=== PATIENT | female | born 1955 | race Caucasian/White ===

== ENCOUNTER → 2018-08-03 | Outpatient (CLI) | payer BC ==
--- NOTE | 2018-08-03 10:24 | FL ---
EXAMINATION TYPE: FL barium swallow DATE OF EXAM: 08/03/2018 CLINICAL HISTORY: Chest pain from epigastric region for 3 to 4 months. TECHNIQUE: A double contrast esophagram is performed utilizing air and barium. A total of 28 second s of fluoroscopic time was utilized during procedure. 48 spot images are saved. COMPARISON: None FINDINGS: The esophagus shows satisfactory motility and emptying into the stomach. Patient had focal deep penetration on image 10 which clears during rapid drinking. No evidence of fixed hiatal hernia or stricture noted. No significant gastroesophageal reflux was seen during real time performance of t his study. IMPRESSION: No significant abnormality is seen to account for patient's symptoms of chest and epigas tric pain.
== END | disposition home or self-care (01) ==
LOC: RADUSWWP 09:32
PROVIDERS: ATTEND Surgery Plastic and Reconstructive Surgery
DX: R07.9 Chest pain, unspecified (principal); R10.13 Epigastric pain; Z88.1 Allergy status to other antibiotic agents; Z88.5 Allergy status to narcotic agent
CPT/HCPCS: 74220

== ENCOUNTER 2018-08-17 10:04 | Day surgery (SDC) | payer BC ==
[2018-08-16 08:29] VITALS: BMI 29.7
--- NOTE | 2018-08-16 23:01 | P.GSHP ---
History of Present Illness H&P Date: 08/17/18 CHIEF COMPLAINT: GERD HISTORY OF PRESENT ILLNESS: The patient is a 62-year-old female who presents reports gastroesophageal reflux disease. Upper endoscopy was offered for further evaluation and management. PAST MEDICAL HISTORY: Please see list. PAST SURGICAL HISTORY: Please see list. MEDICATIONS: Please see list. ALLERGIES: Please see list. SOCIAL HISTORY: No illicit drug use FAMILY HISTORY: No reports of Crohn disease or ulcerative colitis. REVIEW OF ORGAN SYSTEMS: CONSTITUTIONAL: No reports of fevers or chills. GI: Denies any blood in stools or constipation. PHYSICAL EXAM: VITAL SIGNS: Stable GENERAL: Well-developed and pleasant in no acute distress. HEENT: No scleral icterus. Extraocular movements grossly intact. Moist buccal mucosa. NECK: Supple without lymphadenopathy. CHEST: Unlabored respirations. Equal bilateral excursions. CARDIOVASCULAR: Regular rate and rhythm. Distal 2+ pulses. ABDOMEN: Soft, nondistended. MUSCULOSKELETAL: No clubbing, cyanosis, or edema. ASSESSMENT: 1. Gastroesophageal reflux disease PLAN: 1. Recommend proceeding with an upper endoscopy Past Medical History Past Medical History: GERD/Reflux, Hyperlipidemia, Hypertension, Thyroid Disorder History of Any Multi-Drug Resistant Organisms: None Reported Past Surgical History: Orthopedic Surgery Additional Past Surgical History / Comment(s): LT KNEE SCOPE. COLONOSCOPY Past Anesthesia/Blood Transfusion Reactions: Motion Sickness Smoking Status: Never smoker - Past Family History Mother Family Medical History: No Reported History Father History Unknown: Yes Medications and Allergies Home Medications Medication Instructions Recorded Confirmed Type Aspirin [Adult Low Dose Aspirin EC] 81 mg PO DAILY 08/16/18 08/16/18 History Atorvastatin [Lipitor] 10 mg PO DAILY 08/16/18 08/16/18 History Cholecalciferol (Vitamin D3) 2,000 unit PO HS 08/16/18 08/16/18 History [Vitamin D3] Famotidine 20 mg PO BID 08/16/18 08/16/18 History Levothyroxine Sodium 100 mcg PO DAILY 08/16/18 08/16/18 History Omeprazole 40 mg PO DAILY 08/16/18 08/16/18 History amLODIPine BESYLATE 5 mg PO DAILY 08/16/18 08/16/18 History Allergies Allergy/AdvReac Type Severity Reaction Status Date / Time acetaminophen [From [place]] Allergy Rash/Hives Verified 08/16/18 08:16 hydrocodone [From [place]] Allergy Rash/Hives Verified 08/16/18 08:16
[~2018-08-17 10:04] MED LIST: LACTATED RINGERS 1,000 ML IV SCH; LIDOCAINE 1% 20 ML VIAL (10MG/ML) FOR IV START INTRADERMA PRN
[2018-08-17] MEDS ORDERED: LIDOCAINE 1% 20 ML VIAL (10MG/ML) FOR IV START INTRADERMA ONE (10:25)
[2018-08-17] MEDS ORDERED: LACTATED RINGERS 1,000 ML IV ONE (10:25)
[2018-08-17 10:41] VITALS: RESP 16; TEMP 97.8
[2018-08-17] MEDS ORDERED: PROPOFOL 10 MG/ML 20 ML VIAL IV ONE (10:56)
--- NOTE | 2018-08-17 11:11 | P.PCN ---
Date of Procedure: 08/17/18 Description of Procedure: PREOPERATIVE DIAGNOSIS: Gastroesophageal reflux disease. POSTOPERATIVE DIAGNOSIS: Gastritis. Gastroesophageal reflux disease. Diaphragmatic hiatal hernia OPERATION: Esophagogastroduodenoscopy with biopsies along antrum. SURGEON: Zuly De La Fuente MD ANESTHESIA: MAC. INDICATIONS: The patient is a 62-year-old female who presents with a history of reflux disease. Benefits and risks of the procedure were described. Informed consent was obtained. DESCRIPTION: The patient was brought into the endoscopy suite and laid in the left lateral decubitus position. An Olympus gastroscope was passed along the posterior oropharynx down to the distal esophagus where the squamocolumnar junction was encountered at 35 cm from the incisors. The stomach was entered and no bile reflux was found. Additional findings are listed below. Biopsies with cold forceps were obtained of the antrum. The first through third portion of the duodenum was examined and unremarkable. Retroflexion of the scope confirmed Hill grade 4 lower esophageal valve. The squamocolumnar junction demonstrated LA grade B erosive esophagitis. The stomach was desufflated. The patient tolerated the procedure well. FINDINGS: Squamocolumnar junction 35 cm from the incisors. Diaphragmatic hiatus at 40 cm. Hiatal hernia, 5 cm Hill grade 4 lower esophageal valve. LA grade B erosive esophagitis. No active duodenitis. Chronic gastritis RECOMMENDATIONS: Upper endoscopy as needed. Plan - Discharge Summary Discharge Rx Participant: No New Discharge Prescriptions: No Action Atorvastatin [Lipitor] 10 mg PO DAILY amLODIPine BESYLATE 5 mg PO DAILY Famotidine 20 mg PO BID Omeprazole 40 mg PO DAILY Levothyroxine Sodium 100 mcg PO DAILY Cholecalciferol (Vitamin D3) [Vitamin D3] 2,000 unit PO HS Aspirin [Adult Low Dose Aspirin EC] 81 mg PO DAILY Discharge Medication List Aspirin [Adult Low Dose Aspirin EC] 81 mg PO DAILY 08/16/18 [History] Atorvastatin [Lipitor] 10 mg PO DAILY 08/16/18 [History] Cholecalciferol (Vitamin D3) [Vitamin D3] 2,000 unit PO HS 08/16/18 [History] Famotidine 20 mg PO BID 08/16/18 [History] Levothyroxine Sodium 100 mcg PO DAILY 08/16/18 [History] Omeprazole 40 mg PO DAILY 08/16/18 [History] amLODIPine BESYLATE 5 mg PO DAILY 08/16/18 [History] Follow up Appointment(s)/Referral(s): Zuly De La Fuente MD [STAFF PHYSICIAN] - 08/28/18 Patient Instructions/Handouts: Hiatal Hernia (DC), Gastroesophageal Reflux Disease (DC) Discharge Disposition: HOME SELF-CARE
[2018-08-17 11:37] VITALS: BP 123/78; PULSE 70
== END 2018-08-17 11:50 | disposition home or self-care (01) ==
LOC: ORWHC2ENDO 10:04
PROVIDERS: ATTEND Surgery Plastic and Reconstructive Surgery
DX: K29.50 Unspecified chronic gastritis without bleeding (principal); K44.9 Diaphragmatic hernia without obstruction or gangrene; K21.9 Gastro-esophageal reflux disease without esophagitis; I10 Essential (primary) hypertension; E78.5 Hyperlipidemia, unspecified; E07.9 Disorder of thyroid, unspecified; Z79.82 Long term (current) use of aspirin; Z79.890 Hormone replacement therapy; Z79.899 Other long term (current) drug therapy; Z88.5 Allergy status to narcotic agent
CPT/HCPCS: 88305; 43239; J2704

== ENCOUNTER → 2018-11-30 | Outpatient (CLI) | payer BC ==
[2018-11-30 14:32] LABS: HCT 42.1 % (34.0-46.0); HGB 14.3 gm/dL (11.4-16.0); MCH 31.3 pg (25.0-35.0); MCV 91.8 fL (80.0-100.0); Mean Platelet Volume 7.7; Platelet Count 296 k/uL (150-450); RBC 4.58 m/uL (3.80-5.40); RDW 13.2 % (11.5-15.5); WBC 9.1 k/uL (3.8-10.6)
== END | disposition home or self-care (01) ==
LOC: LABPAT 12:47
PROVIDERS: ATTEND Surgery Plastic and Reconstructive Surgery
DX: Z01.812 Encounter for preprocedural laboratory examination (principal)
CPT/HCPCS: 36415; 85027

== ENCOUNTER 2018-12-06 06:47 | Inpatient (IN) | payer BC ==
[2018-11-30 10:11] VITALS: BMI 29.7
[~2018-12-06 06:47] MED LIST changes: +CLINDAMYCIN 900 MG in DEXTROSE 5% IN WATER 50 ML IVPB ONE; +DEXAMETHASONE SOD PHOSPHATE 10 MG/ML 1 ML VIAL IV ONE; +HEPARIN SODIUM,PORCINE 5,000 UNIT/ML 1 ML VIAL SQ ONE; +LEVOFLOXACIN 500MG-D5W PMX 500 MG in DEXTROSE/WATER 1 100ML.BAG IVPB ONE; +ONDANSETRON 4 MG/2 ML VIAL IVP ONE; +SCOPOLAMINE 1.5MG/72HR PATCH TRANSDERM ONE; +fentaNYL (PF) 50 MCG/ML 2 ML AMP IV PRN
--- NOTE | 2018-12-06 07:44 | P.GSHP ---
History of Present Illness H&P Date: 12/06/18 CHIEF COMPLAINT: Paraesophageal hiatal hernia with gastroesophageal reflux disease. HISTORY OF PRESENT ILLNESS: The patient is a 63-year-old female who presents with paraesophageal hiatal hernia. She has completed an esophageal manometry including upper endoscopy workup. Now she presents for surgical intervention. PAST MEDICAL HISTORY: Please see list. PAST SURGICAL HISTORY: Please see list. MEDICATIONS: Please see list. ALLERGIES: Please see list. SOCIAL HISTORY: No illicit drug use FAMILY HISTORY: No reports of Crohn disease or ulcerative colitis. REVIEW OF ORGAN SYSTEMS: CONSTITUTIONAL: No reports of fevers or chills. GI: Denies any blood in stools or constipation. PHYSICAL EXAM: VITAL SIGNS: Stable GENERAL: Well-developed pleasant and in no acute distress. HEENT: No scleral icterus. Extraocular movements grossly intact. Moist buccal mucosa. NECK: Supple without lymphadenopathy. CHEST: Unlabored respirations. Equal bilateral excursions. CARDIOVASCULAR: Regular rate and rhythm. Distal 2+ pulses. ABDOMEN: Soft, nondistended. No peritoneal signs. MUSCULOSKELETAL: No clubbing, cyanosis, or edema. SKIN: Well-perfused. Good skin turgor. MANOMETRY: Shows no evidence of achalasia or scleroderma. ASSESSMENT: 1. Diaphragmatic paraesophageal hiatal hernia with severe gastroesophageal reflux disease. PLAN: 1. Recommend proceeding with a robotic paraesophageal hiatal hernia with possible mesh. 2. Benefits and risks of surgical intervention was discussed including possibility of open technique. 3. Inpatient hospitalization recommended of 2 nights 4. DVT prophylaxis. 5. Antibiotic prophylaxis. 6. She has also completed a very low caloric high-protein diet to address underlying hepatomegaly. Past Medical History Past Medical History: Hyperlipidemia, Hypertension, Osteoarthritis (OA), Thyroid Disorder Additional Past Medical History / Comment(s): hiatal hernia, bone spur rt hip History of Any Multi-Drug Resistant Organisms: None Reported Past Surgical History: Orthopedic Surgery Additional Past Surgical History / Comment(s): lt knee meniscus repair Past Anesthesia/Blood Transfusion Reactions: Family History of Problems w/ Anesthesia, Motion Sickness Additional Past Anesthesia/Blood Transfusion Reaction / Comment(s): mother ponv Smoking Status: Former smoker - Past Family History Mother Family Medical History: No Reported History Medications and Allergies Home Medications Medication Instructions Recorded Confirmed Type Atorvastatin [Lipitor] 10 mg PO DAILY 08/16/18 12/06/18 History Cholecalciferol (Vitamin D3) 2,000 unit PO HS 08/16/18 11/30/18 History [Vitamin D3] Levothyroxine Sodium 100 mcg PO DAILY 08/16/18 11/30/18 History amLODIPine BESYLATE 5 mg PO DAILY 08/16/18 11/30/18 History Allergies Allergy/AdvReac Type Severity Reaction Status Date / Time acetaminophen [From [place]] Allergy Rash/Hives Verified 11/30/18 09:55 bee venom protein (honey bee) Allergy Swelling Verified 11/30/18 09:57 cephalexin Allergy Itching,rash,hives,heat Verified 11/30/18 09:56 in face hydrocodone [From [place]] Allergy Rash/Hives Verified 11/30/18 09:55 Surgical - Exam Vital Signs Temp Pulse Resp BP Pulse Ox 98.0 F 80 18 131/75 98 12/06/18 07:12 12/06/18 07:12 12/06/18 07:12 12/06/18 07:12 12/06/18 07:12
[2018-12-06] MEDS ORDERED: MIDAZOLAM PF (FBP) 2 MG/2 ML VIAL IVP ONE (07:45)
[2018-12-06] MEDS ORDERED: fentaNYL (PF) 50 MCG/ML 2 ML AMP ONE (08:08)
[2018-12-06] MEDS ORDERED: MIDAZOLAM 2 MG/2 ML VIAL ONE (08:08)
[2018-12-06] MEDS ORDERED: LIDOCAINE 1% INJ 10MG/ML (20 ML MDV) ONE (08:08)
[2018-12-06] MEDS ORDERED: NEOSTIGMINE 1 MG/ML 10 ML VIAL ONE (08:08)
[2018-12-06] MEDS ORDERED: ROCURONIUM BROMIDE 10 MG/ML 10 ML VIAL IV ONE (08:08)
[2018-12-06] MEDS ORDERED: GLYCOPYRROLATE 0.2 MG/ML 2 ML VIAL ONE (08:08)
[2018-12-06] MEDS ORDERED: KETOROLAC 30 MG/ML 1 ML VIAL ONE (08:08)
[2018-12-06] MEDS ORDERED: PROPOFOL 10 MG/ML 20 ML VIAL IV ONE (08:08)
[2018-12-06] MEDS ORDERED: BUPIVACAINE (PF) 0.25% 30 ML VIAL SQ ONE (08:42)
[2018-12-06] MEDS ORDERED: NALOXONE 0.4 MG/ML 1 ML VIAL IV PRN ×2 (09:53→10:51)
[2018-12-06] MEDS ORDERED: diphenhydrAMINE 50 MG/ML 1 ML VIAL IVP PRN (09:53)
[2018-12-06] MEDS ORDERED: SCOPOLAMINE 1.5MG/72HR PATCH TRANSDERM SCH (10:00)
[2018-12-06] MEDS: HYDROmorphone 1 MG/ML 1 ML SYRINGE IVP ONE ×2 (10:05→10:30)
--- NOTE | 2018-12-06 10:13 | P.OP ---
Date of Procedure: 12/06/18 Description of Procedure: SURGEON: CELIA LUCIA MD PREOPERATIVE DIAGNOSES: 1. Symptomatic paraesophageal diaphragmatic hiatal hernia. 2. Gastroesophageal reflux disease. 3. Hypothyroidism 4. Hyperlipidemia 5. Hypertensive lower esophageal sphincter POSTOPERATIVE DIAGNOSES: 1. Symptomatic paraesophageal diaphragmatic hiatal hernia. 2. Gastroesophageal reflux disease. 3. Hypothyroidism 4. Hyperlipidemia 5. Hypertensive lower esophageal sphincter OPERATION: 1. Robotic-assisted da Nikkie Xi laparoscopic repair of incarcerated paraesophageal hiatal hernia, 5 x 3 cm, with Gaines Biopatch A 8 x 8 cm. 2. Intraoperative esophagogastroduodenoscopy 3. Insertion of 56-Somali bougie for dilation of hypertensive lower esophageal sphincter ANESTHESIA: General with local anesthetic. ESTIMATED BLOOD LOSS: 5 mL SPECIMENS REMOVED: None COMPLICATIONS: None. Condition: stable Disposition: floor FINDINGS: 1. Midline incarcerated paraesophageal hiatal hernia 5 x 3 cm 2. Intraoperative upper endoscopy confirms complete closure of hiatal hernia from Hill grade 4 to Hill grade 1 INDICATIONS: The patient is a 63-year-old female who presents with regurgitation, gastroesophageal reflux disease poorly controlled despite medications, and a symptomatic diaphragmatic hiatal hernia with Oconnor's esophagus. Preoperative workup including upper endoscopy demonstrated a Hill grade 4 lower esophageal valve. She completed an esophageal manometry. Given the severity of symptoms, she had elected for surgical intervention. Benefits and risks including bleeding, infection, recurrence, dysphagia, injury to the lung, need for further surgery was described at length. Informed consent was obtained. DESCRIPTION: The patient was brought into the operating room and placed in supine position. Preoperatively she had received heparin subcutaneously for DVT prophylaxis. After general induction, the abdomen was prepped and draped in standard sterile fashion. The patient had previously voided prior to coming to the operating room. Ioban draping was placed along the abdomen. A timeout protocol was confirmed with the surgical team, for which the patient's name, procedure to be performed including DVT prophylaxis with bilateral SCDs, and preoperative antibiotics were also confirmed. A robotic da Nikkie Xi system was prepped and primed. At 12 cm from the xiphoid to just below the umbilicus, proposed port sites were marked with indelible marker along the left axillary line, left mid-clavicular line with each ports were marked 10 cm from each other. A 5 mm 0 degrees laparoscopic trocar entry was performed along the left upper quadrant. The abdomen was insufflated to 15 mmHg pressure was tolerated well. Diagnostic laparoscopy demonstrated no injury to bowel, viscera, or mesentery. No injury had occurred to the small bowel or viscera. The liver was pristine and thin consistent with low-carb high-protein diet. Next, one 8 mm robotic port was placed along the right upper abdomen. An 8-mm port was were placed along the left lateral abdominal wall. The camera 8-mm port was maintained along the epigastrium via the hernia defect. Another 12 mm port was placed along the left upper abdominal wall after exchanging the 5 mm port. Please note that the ports were placed at least 20 cm away from the target anatomy. Care was taken to check that each robotic arm were safely away from collision with the bed or the patient. At the epigastrium, a medium sized [place] liver retractor was placed under direct visualization with the [place] Valve Mechanic placed under the right shoulder of the patient. All robotic arms were used. The patient was repositioned in reverse Trendelenburg position at 20-degrees after lowering the bed. The robot was docked above the right side of the patient. Using a grasper for arm 3, a grasper for arm 1, including vessel sealer for arm 2, the robotic system was docked and primed as described. Instruments were interchanged by the night assistant. I had sat at the console. The gastrohepatic ligament was cleaved using a vessel sealer. Next, the phrenoesophageal ligament was mobilized and the distal esophagus was mobilized circumferentially. The left and right crura was identified. Circumferentially, the hernia sac was excised and brought into the peritoneal cavity. Moderate dissection into the mediastinum was performed to release the esophagus into the abdominal cavity. The paraesophageal hiatal hernia sac was also incised and divided from the esophagus. The measured defect was consistent with 5 cm axial length and 3 cm in width. After dissection, the distal esophagus of 3 cm was brought into the abdominal cavity. Once the hiatus and crura was dissected, 2-0 VLOC suture was placed to reapproximate the diaphragmatic hiatus posteriorly. To buttress the repair, a Gaines Biopatch A was prepared along the back table and cut in half of a wilson-hole fashion as to reinforce the repair as an underlay. The mesh was placed along the crural repair and tagged using horizontal mattress sutures using 2-0 VLOC. I went to the head of the bed to perform intraoperative esophagogastroduodenoscopy and placement of a 56Fr bougie to address pre- existing hypertensive lower esophageal sphincter. An Olympus gastroscope was passed through posterior oropharynx. Retroflexion of the scope confirmed a Hill grade 1 lower esophageal valve. The stomach had been desufflated. No evidence of leaks were found of the esophagus or stomach. The squamocolumnar junction and hiatus was placed at 40 cm from the incisors. Intra- abdominal esophagus over 2-3 cm also confirmed. The GI tract with desufflated This concluded the endoscopic portion of the case. The robot was undocked from the patient. I re-scrubbed into the case. All instruments and pneumoperitoneum and specimens were evacuated from the abdominal cavity. Incisions were reapproximated using 4-0 Monocryl in an interrupted subcuticular fashion. Liquid glue was applied to the skin. Local anesthetic was infiltrated in all wounds for postop analgesia. Multiple intra-abdominal films were obtained. At the end of the procedure, needle, sponge, and instrument count was verified correct by the biology specimen technician. The patient had tolerated the procedure well and was taken to the postanesthesia unit in stable condition. Intraoperative films were reviewed with the patient's family who was pleased with the level of care. Console time 19 minutes.
[2018-12-06] MEDS ORDERED: LACTATED RINGERS 1,000 ML IV ONE ×2 (10:15)
[2018-12-06] MEDS ORDERED: diphenhydrAMINE 50 MG/ML 1 ML VIAL IVP ONE (10:30)
[2018-12-06] MEDS ORDERED: fentaNYL PCA 500 MCG/50 ML BAG IV PRN (10:51)
[2018-12-06] MEDS ORDERED: DEXAMETHASONE SOD PHOSPHATE 10 MG/ML 1 ML VIAL IV PRN (11:00)
[2018-12-06] MEDS: ACETAMINOPHEN IV (For NPO) 1,000 MG in EMPTY BAG 1 BAG IVPB SCH ×2 (12:44→20:11)
[2018-12-06] MEDS: SIMETHICONE 40 MG/0.6 ML DROPS 2,000 MG/30 ML BOTTLE PO SCH ×2 (12:45→18:41)
[2018-12-06] MEDS: HYOSCYAMINE ORAL DROPS 1.875 MG/15 ML BOTTLE PO SCH ×2 (12:47→18:42)
[2018-12-06] MEDS: DEXAMETHASONE SOD PHOSPHATE 4 MG/ML 1 ML VIAL IV SCH ×3 (12:48→21:14)
[2018-12-06] MEDS: 0.9% NACL WITH KCL 20 MEQ/L 1,000 ML IV SCH ×2 (13:45→23:16)
[2018-12-06] MEDS: KETOROLAC 30 MG/ML 1 ML VIAL IVP SCH ×2 (13:53→18:40)
[2018-12-06] MEDS: ALBUTEROL NEBULIZED 2.5 MG/3 ML INHALATION SCH ×3 (14:02→19:09)
[2018-12-06] MEDS: ONDANSETRON 4 MG/2 ML VIAL IVP SCH ×2 (14:12→18:37)
--- NOTE | 2018-12-06 14:16 | P.ANPRN ---
Procedure Note - Anesthesia - Nerve Block Performed Bilateral Transversus Abdominis Single Time Out Performed: Yes Date of Procedure: 12/06/18 Procedure Start Time: 07:46 Procedure Stop Time: 07:56 Location of Patient Procedure: PreOp Indication: Acute Post-Operative Pain, Requested by Surgeon Sedation Type: Sedate with meaningful contact maintained Preparation: Sterile Prep Position: Supine Catheter: None Needle Types: Pajunk Needle Gauge: 21, Other (see comment) Ultrasound used to visualize needle placement: Yes Ultrasound used to observe medication spread: Yes Injectate: 0.5% Ropivacaine (see comment for volume) (15 cc + 2 mg dexamethasone per side) Blood Aspirated: No Pain Paresthesia on Injection Noted: No Resistance on Injection: Normal Image Stored and Saved: Yes Events: Uneventful and Well Tolerated
--- NOTE | 2018-12-06 15:40 | FL ---
SINGLE CONTRAST ESOPHAGRAM: CLINICAL HISTORY: 63-year-old female with reflux status post Ying fundoplication, hiatal hernia re pair. TECHNIQUE: Single contrast exam performed with 50 ml Isovue-370 contrast. FINDINGS: The patient swallowed oral contrast without difficulty or delay. Esophageal peristalsis shows mild t o moderate dysmotility with intermittent episodes of intraesophageal reflux. There is only slight del ay in passage of contrast along the GE junction that is post hiatal hernia repair. There is no eviden ce of contrast extravasation to suggest leak. There is postsurgical free air on the right. IMPRESSION: No evidence of leak or significant obstruction status post hiatal hernia repair. Trace postsurgical f ree air on the right.
[2018-12-06] MEDS: CLINDAMYCIN 900 MG in DEXTROSE 5% IN WATER 50 ML IVPB SCH ×2 (17:02)
--- NOTE | 2018-12-06 19:00 | P.DS ---
Providers Date of admission: 12/06/18 06:47 Expected date of discharge: 12/07/18 Attending physician: Zuly De La Fuente Primary care physician: Agustin Goodwin - Discharge Diagnosis(es) (1) Paraesophageal hernia with obstruction but no gangrene Current Visit: Yes Status: Acute (2) Gastroesophageal reflux disease with esophagitis Current Visit: Yes Status: Acute (3) Hypothyroidism Current Visit: Yes Status: Acute (4) Hyperlipidemia Current Visit: Yes Status: Acute Hospital Course: POSTOPERATIVE DIAGNOSES: 1. Symptomatic paraesophageal diaphragmatic hiatal hernia. 2. Gastroesophageal reflux disease. 3. Hypothyroidism 4. Hyperlipidemia 5. Hypertensive lower esophageal sphincter INDICATIONS: The patient is a 63-year-old female who presents with regurgitation, gastroesophageal reflux disease poorly controlled despite medications, and a symptomatic diaphragmatic hiatal hernia. She had a hiatal hernia repair and had done well. Esophagram was within normal limits. Prior to discharge, she was tolerating diet. Vital Signs Temp 97.7 F 12/06/18 11:15 Pulse 75 12/06/18 15:00 Resp 16 12/06/18 15:00 BP 119/79 12/06/18 15:00 Pulse Ox 96 12/06/18 15:00 Intake & Output 12/05/18 12/06/18 12/06/18 18:59 06:59 18:59 Intake Total 6 Output Total Balance 2050 Weight 83.461 kg Intake: IV 1156 Oral 900 Output: Estimated Blood Loss 5 Other: Voiding Method Toilet # Voids 1 Pertinent Studies: Esophagram - no obstruction or hiatal hernia or reflux Procedures: OPERATION: 1. Robotic-assisted da Nikkie Xi laparoscopic repair of incarcerated paraesophageal hiatal hernia, 5 x 3 cm, with [place] Biopatch A 8 x 8 cm. 2. Intraoperative esophagogastroduodenoscopy 3. Insertion of 56-Thai bougie for dilation of hypertensive lower esophageal sphincter ANESTHESIA: General with local anesthetic. ESTIMATED BLOOD LOSS: 5 mL SPECIMENS REMOVED: None COMPLICATIONS: None. Condition: stable Disposition: floor FINDINGS: 1. Midline incarcerated paraesophageal hiatal hernia 5 x 3 cm 2. Intraoperative upper endoscopy confirms complete closure of hiatal hernia from Hill grade 4 to Hill grade 1 Patient Condition at Discharge: Good Plan - Discharge Summary Discharge Rx Participant: Yes New Discharge Prescriptions: No Action Atorvastatin [Lipitor] 10 mg PO DAILY amLODIPine BESYLATE 5 mg PO DAILY Levothyroxine Sodium 100 mcg PO DAILY Cholecalciferol (Vitamin D3) [Vitamin D3] 2,000 unit PO HS Discharge Medication List Atorvastatin [Lipitor] 10 mg PO DAILY 08/16/18 [History] Cholecalciferol (Vitamin D3) [Vitamin D3] 2,000 unit PO HS 08/16/18 [History] Levothyroxine Sodium 100 mcg PO DAILY 08/16/18 [History] amLODIPine BESYLATE 5 mg PO DAILY 08/16/18 [History]
[2018-12-07] MEDS: CLINDAMYCIN 900 MG in DEXTROSE 5% IN WATER 50 ML IVPB SCH ×2 (00:11)
[2018-12-07] MEDS: KETOROLAC 30 MG/ML 1 ML VIAL IVP SCH ×2 (00:12→06:22)
[2018-12-07] MEDS: HYOSCYAMINE ORAL DROPS 1.875 MG/15 ML BOTTLE PO SCH ×2 (00:13→06:21)
[2018-12-07] MEDS: ONDANSETRON 4 MG/2 ML VIAL IVP SCH ×2 (00:13→06:24)
[2018-12-07] MEDS: SIMETHICONE 40 MG/0.6 ML DROPS 2,000 MG/30 ML BOTTLE PO SCH ×2 (00:13→06:24)
[2018-12-07] MEDS: 0.9% NACL WITH KCL 20 MEQ/L 1,000 ML IV SCH (01:29)
[2018-12-07] MEDS: ACETAMINOPHEN IV (For NPO) 1,000 MG in EMPTY BAG 1 BAG IVPB SCH ×2 (01:31→07:12)
[2018-12-07] MEDS: DEXAMETHASONE SOD PHOSPHATE 4 MG/ML 1 ML VIAL IV SCH ×3 (01:31→09:15)
[2018-12-07 05:00] VITALS: RESP 16; TEMP 97.9
[2018-12-07] MEDS ORDERED: LEVOTHYROXINE 100 MCG TAB PO SCH (06:30)
[2018-12-07] MEDS ORDERED: 0.9% NACL WITH KCL 20 MEQ/L 1,000 ML IV SCH (08:00)
[2018-12-07 08:28] LABS: Basophils % (A) 0 %; Eosinophils % (A) 0 %; HCT 41.1 % (34.0-46.0); HGB 13.4 gm/dL (11.4-16.0); Lymphocytes # (A) 0.8 k/uL (1.0-4.8); Lymphocytes % (A) 5 %; MCH 31.1 pg (25.0-35.0); MCHC 32.5 g/dL (31.0-37.0); MCV 95.6 fL (80.0-100.0); Mean Platelet Volume 6.4; Monocytes # (A) 0.3 k/uL (0-1.0); Monocytes % (A) 2 %; Neutrophils # (A) 14.7 k/uL (1.3-7.7); Neutrophils % (A) 93 %; Platelet Count 310 k/uL (150-450); RDW 13.1 % (11.5-15.5); WBC 15.8 k/uL (3.8-10.6)
[2018-12-07 08:29] LABS: African American GFR (CKD) >90 (>60 ml/min/1.73 sqM); Anion Gap 9 mmol/L; Blood Urea Nitrogen 12 mg/dL (7-17); Calcium 9.8 mg/dL (8.4-10.2); Carbon Dioxide 26 mmol/L (22-30); Chloride 104 mmol/L (98-107); Magnesium 2.1 mg/dL (1.6-2.3); Non-African American GFR(CKD) >90 (>60 ml/min/1.73 sqM); Phosphorus 3.8 mg/dL (2.5-4.5); Potassium 4.4 mmol/L (3.5-5.1); Sodium 139 mmol/L (137-145)
[2018-12-07] MEDS: ALBUTEROL NEBULIZED 2.5 MG/3 ML INHALATION SCH (08:50)
[2018-12-07] MEDS ORDERED: ENOXAPARIN 40 MG/0.4 ML SYRINGE SQ SCH (09:00)
[2018-12-07] MEDS ORDERED: PANTOPRAZOLE 40 MG/10 ML VIAL IV SCH (09:00)
[2018-12-07] MEDS ORDERED: amLODIPine 5 MG TAB PO SCH (09:00)
[2018-12-07 09:21] VITALS: BP 126/78; PULSE 81
--- NOTE | 2018-12-07 09:27 | P.PN ---
Subjective Progress Note Date: 12/07/18 CHIEF COMPLAINT: Gastric esophageal reflux disease HISTORY OF PRESENT ILLNESS: The patient is a 63-year-old female postop day 1 status post hiatal hernia repair. Her mother just passed hospice yesterday while in the hospital. She reports not sleeping well at night. No reports of recurrent reflux disease. ROS: No reports of nausea and vomiting. No bowel movements. No fevers or chills. No new chest pain. No productive sputum PHYSICAL EXAM: VITAL SIGNS: Reviewed CONSTITUTIONAL: Well developed and in no acute distress. EYES: Conjuctivae without sclera icterus. Extraocular movements grossly intact. HEAD, EARS, NOSE, THROAT: Moist buccal mucosa. Head is atraumatic, normocephalic. Hears conversational speech. No nasal drainage. RESPIRATORY: Non-labored respirations and equal bilateral excursions. CARDIOVASCULAR: Palpable 2+ radial pulses. Regular rate. Regular rhythm. ABDOMEN: Incisions clean dry and intact. Soft. No peritonitis. MUSCULOSKELETAL: No gross deformity of the lower extremities noted. No clubbing. No cyanosis. SKIN: Good skin turgor. Well perfused. NEUROLOGIC: Cranial nerves I through XII grossly intact. No focal or lateralizing signs. PSYCH: Appropriate affect. Alert and oriented to person, place and time. CLINCAL LABS: White blood cell count elevated reactive secondary to surgery STUDIES: Esophagram without leaks or obstruction ASSESSMENT: 1. Gastroesophageal reflux disease secondary to hiatal hernia PLAN: 1. Post hiatal hernia diet reviewed. 2. No straws or carbonated beverages. 3. Full liquid diet only. 4. Follow-up in the office in 5 days. Objective - Vital Signs Vital signs: Vital Signs Temp 97.9 F 12/07/18 08:01 Pulse 84 12/07/18 09:04 Resp 16 12/07/18 08:01 BP 126/78 12/07/18 08:01 Pulse Ox 98 12/07/18 08:01 Intake & Output 12/06/18 12/07/18 12/07/18 18:59 06:59 18:59 Intake Total 2055 Output Total Balance 2050 Weight 83.461 kg Intake: IV 1156 Oral 900 Output: Estimated Blood Loss 5 Other: Voiding Method Toilet # Voids 1 1 - Labs CBC & Chem 7: 12/07/18 08:04 12/07/18 08:04 Labs: Abnormal Lab Results - Last 24 Hours (Table) 12/07/18 Range/Units 08:04 WBC 15.8 H (3.8-10.6) k/uL Neutrophils # 14.7 H (1.3-7.7) k/uL Lymphocytes # 0.8 L (1.0-4.8) k/uL Assessment and Plan (1) Paraesophageal hernia with obstruction but no gangrene Current Visit: Yes Status: Acute Code(s): K44.0 - DIAPHRAGMATIC HERNIA WITH OBSTRUCTION, WITHOUT GANGRENE SNOMED Code(s): 142842706 (2) Gastroesophageal reflux disease with esophagitis Current Visit: Yes Status: Acute Code(s): K21.0 - GASTRO-ESOPHAGEAL REFLUX DISEASE WITH ESOPHAGITIS SNOMED Code(s): 943464107 (3) Hypothyroidism Current Visit: Yes Status: Acute Code(s): E03.9 - HYPOTHYROIDISM, UNSPECIFIED SNOMED Code(s): 37786419 (4) Hyperlipidemia Current Visit: Yes Status: Acute Code(s): E78.5 - HYPERLIPIDEMIA, UNSPECIFIED SNOMED Code(s): 87111454
[2018-12-08] MEDS ORDERED: BISACODYL 5 MG TABLET.DR PO PRN (08:00)
== END 2018-12-07 09:51 | disposition home or self-care (01) | DRG 328 ==
LOC: 2ORMAIN 06:47 → 6PED 10:30
PROVIDERS: ADMIT Surgery Plastic and Reconstructive Surgery; ATTEND Surgery Plastic and Reconstructive Surgery
PROC: 0D7 Gastrointestinal System, Dilation (ICD-10-PCS; 2018-12-06)
PROC: 8E0W4CZ Robotic Assisted Procedure of Trunk Region, Percutaneous Endoscopic Approach (ICD-10-PCS; 2018-12-06)
PROC: 0DJ08ZZ Inspection of Upper Intestinal Tract, Via Natural or Artificial Opening Endoscopic (ICD-10-PCS; 2018-12-06)
PROC: 0BUT4JZ Supplement Diaphragm with Synthetic Substitute, Percutaneous Endoscopic Approach (ICD-10-PCS; principal; 2018-12-06 08:15)
DX: K44.0 Diaphragmatic hernia with obstruction, without gangrene (principal); E03.9 Hypothyroidism, unspecified; E78.5 Hyperlipidemia, unspecified; I10 Essential (primary) hypertension; K21.0 Gastro-esophageal reflux disease with esophagitis; K22.0 Achalasia of cardia; K22.70 Barrett's esophagus without dysplasia; Z79.890 Hormone replacement therapy; Z79.899 Other long term (current) drug therapy; Z87.891 Personal history of nicotine dependence; Z88.5 Allergy status to narcotic agent; Z88.1 Allergy status to other antibiotic agents; Z91.030 Bee allergy status
CPT/HCPCS: 64488; 74210; 80051; 82310; 82565; 83735; 84100; 84520; 85025; 94640

== ENCOUNTER → 2020-06-19 | Outpatient (CLI) | payer BC ==
[2020-06-19 11:24] LABS: Creatine Kinase MB 1.9 ng/mL (0.0-2.4); Troponin I <0.012 ng/mL (0.000-0.034)
== END | disposition home or self-care (01) ==
LOC: LABWHC1 10:22
PROVIDERS: ATTEND Physician Assistant
DX: R03.0 Elevated blood-pressure reading, without diagnosis of hypertension (principal)
CPT/HCPCS: 36415; 82550; 82553; 84484; 85379

== ENCOUNTER 2023-07-25 08:04 | Day surgery (SDC) | payer MEDICARE ==
[2023-07-19 16:13] VITALS: BMI 25.7
[~2023-07-25 08:04] MED LIST changes: -CLINDAMYCIN 900 MG in DEXTROSE 5% IN WATER 50 ML IVPB ONE; -DEXAMETHASONE SOD PHOSPHATE 10 MG/ML 1 ML VIAL IV ONE; -HEPARIN SODIUM,PORCINE 5,000 UNIT/ML 1 ML VIAL SQ ONE; -LACTATED RINGERS 1,000 ML IV SCH; -LEVOFLOXACIN 500MG-D5W PMX 500 MG in DEXTROSE/WATER 1 100ML.BAG IVPB ONE; +LIDOCAINE 1% (10MG/ML) FOR IV START INTRADERMA PRN; -LIDOCAINE 1% 20 ML VIAL (10MG/ML) FOR IV START INTRADERMA PRN; -ONDANSETRON 4 MG/2 ML VIAL IVP ONE; -SCOPOLAMINE 1.5MG/72HR PATCH TRANSDERM ONE; -fentaNYL (PF) 50 MCG/ML 2 ML AMP IV PRN
[2023-07-25] MEDS: LACTATED RINGERS 1,000 ML IV SCH (08:43)
[2023-07-25 08:48] VITALS: TEMP 97.3
[2023-07-25 08:52] LABS: Glucose,Whole Blood 86 mg/dL (70-110)
[2023-07-25] MEDS ORDERED: PROPOFOL 10 MG/ML 20 ML VIAL IV ONE (08:59)
--- NOTE | 2023-07-25 09:17 | P.PCN ---
Date of Procedure: 07/25/23 Procedure(s) Performed: BRIEF HISTORY: Patient is a 67-year-old pleasant white female scheduled for an elective colonoscopy as a part of screening for colon cancer. PROCEDURE PERFORMED: Colonoscopy. PREOPERATIVE DIAGNOSIS: Screening for colon cancer. IV sedation per Anesthesia. PROCEDURE: After informed consent was obtained, the patient, was brought into the endoscopy unit. IV sedation was administered by Anesthesia under continuous monitoring. Digital rectal examination was normal. Initially the Olympus CF-160 flexible video colonoscope was then inserted in the rectum, gradually advanced into the cecum without any difficulty. Careful examination was performed as the scope was gradually being withdrawn. Ileocecal valve and the appendiceal orifice were visualized and appeared normal. Prep was excellent. Mucosa of the cecum, ascending colon, transverse colon, descending colon, sigmoid colon, and rectum appeared normal. Retroflexion was performed in the rectum and no lesions were seen. The patient tolerated the procedure well. IMPRESSION: Normal-appearing colon from rectum to cecum with no evidence of colorectal neoplasia. RECOMMENDATIONS: Findings of this examination were discussed with the patient as well as a family. She was advised to have repeat screening colonoscopy in 10 years..
[2023-07-25 09:38] LABS: Glucose,Whole Blood 83 mg/dL (70-110)
[2023-07-25 09:43] VITALS: RESP 16
[2023-07-25 10:38] VITALS: BP 142/89; PULSE 59
== END 2023-07-25 09:55 | disposition home or self-care (01) ==
LOC: ORWHC2ENDO 08:04
PROVIDERS: ATTEND Internal Medicine Gastroenterology
DX: Z12.11 Encounter for screening for malignant neoplasm of colon (principal); I10 Essential (primary) hypertension; E78.5 Hyperlipidemia, unspecified; E03.9 Hypothyroidism, unspecified; M19.90 Unspecified osteoarthritis, unspecified site; Z79.890 Hormone replacement therapy; Z79.899 Other long term (current) drug therapy; Z98.890 Other specified postprocedural states; Z88.8 Allergy status to other drugs, medicaments and biological substances; Z88.1 Allergy status to other antibiotic agents
CPT/HCPCS: J2704; G0121; 45378